=== PATIENT | female | born 2000 | race Caucasian/White ===

== ENCOUNTER 2021-04-04 00:49 | Emergency (ER) | payer BC ==
[2021-04-04 01:54] VITALS: BP 116/71
--- NOTE | 2021-04-04 08:46 | Emergency Department Report ---
- General Chief Complaint: Upper Respiratory Infection Stated Complaint: COUGHING UP BLOOD Time Seen by Provider: 04/04/21 07:01 Source: patient Mode of arrival: Ambulatory Limitations: No Limitations - History of Present Illness Initial Comments: 20-year-old female that is 27 weeks presents to the emergency room states that she started coughing up blood last night and this morning. Patient denies being on any blood thinners, no pain no fever no chills no abd ominal pain no vaginal discharge no vaginal bleeding. Patient denies any history of blood clotting disease. She is 2 para 1. Last menstrual period was 09/22/2020. There is no chest pain or shortness of breath only with cough. She states when she coughs she does sometimes wheeze but then it would return normal. MD Complaint: cough -: Last night Consistency: intermittent Improves With: nothing Associated Symptoms: denies other symptoms - Related Data Home Medications Medication Instructions Recorded Confirmed Last Taken Formula Tablet 1 tab PO DAILY 09/18/18 09/18/18 09/17/18 Previous Rx's Medication Instructions Recorded Last Taken Type HYDROcodone/APAP 5-325 [[place] 1 each PO Q6HR PRN #20 tablet 09/21/18 Unknown Rx 5/325] Ibuprofen [Motrin] 800 mg PO Q8HR PRN #60 tablet 09/21/18 Unknown Rx Ferrous Sulfate [Iron 325 MG] 325 mg PO Q12H 30 Days #60 tablet 09/23/18 Unknown Rx Nitrofurantoin [place]/M-Cryst 100 mg PO Q12HR 7 Days #14 capsule 09/23/18 Unknown Rx [Macrobid CAP] Allergies Allergy/AdvReac Type Severity Reaction Status Date / Time amoxicillin Allergy Hives Verified 09/18/18 23:13 ED Review of Systems ROS: Stated complaint: COUGHING UP BLOOD Other details as noted in HPI Comment: All other systems reviewed and negative ED Past Medical Hx - Past Medical History Previous Medical History?: No Hx Hypertension: No Hx Congestive Heart Failure: No Hx Diabetes: No Hx Deep Vein Thrombosis: No Hx Liver Disease: No Hx Renal Disease: No Hx Sickle Cell Disease: No Hx Seizures: No Hx Asthma: No Hx COPD: No - Surgical History Past Surgical History?: Yes Additional Surgical History: tonsils - Social History Smoking Status: Never Smoker Substance Use Type: None - Medications Home Medications: Home Medications Medication Instructions Recorded Confirmed Last Taken Type Formula Tablet 1 tab PO DAILY 09/18/18 09/18/18 09/17/18 History HYDROcodone/APAP 5-325 [[place] 1 each PO Q6HR PRN #20 tablet 09/21/18 Unknown Rx 5/325] Ibuprofen [Motrin] 800 mg PO Q8HR PRN #60 tablet 09/21/18 Unknown Rx Ferrous Sulfate [Iron 325 MG] 325 mg PO Q12H 30 Days #60 tablet 09/23/18 Unknown Rx Nitrofurantoin Cecil/M-Cryst 100 mg PO Q12HR 7 Days #14 capsule 09/23/18 Unknown Rx [Macrobid CAP] ED Physical Exam - General Limitations: No Limitations General appearance: alert, in no apparent distress - Head Head exam: Present: atraumatic, normocephalic - Eye Eye exam: Present: normal appearance - ENT ENT exam: Present: normal exam, mucous membranes moist - Neck Neck exam: Present: normal inspection, full ROM - Respiratory Respiratory exam: Present: normal lung sounds bilaterally. Absent: respiratory distress, chest wall tenderness - Cardiovascular Cardiovascular Exam: Present: regular rate, normal rhythm - GI/Abdominal GI/Abdominal exam: Present: soft - Extremities Exam Extremities exam: Present: normal inspection - Back Exam Back exam: Present: normal inspection - Neurological Exam Neurological exam: Present: alert, oriented X3, normal gait - Psychiatric Psychiatric exam: Present: normal affect, normal mood - Skin Skin exam: Present: warm, dry, intact, normal color. Absent: rash ED Course Vital Signs 04/04/21 01:35 Temperature 98.0 F Pulse Rate 82 Respiratory 16 Rate Blood Pressure 116/71 O2 Sat by Pulse 100 Oximetry ED Medical Decision Making - Lab Data Result diagrams: 04/04/21 08:49 04/04/21 11:03 - Radiology Data Radiology results: report reviewed [facility] [address] [place] [address] Cat Scan Report Signed Patient: YASIR DAILY MR#: [id number] : 2000 Acct:[id number] Age/Sex: 20 / F ADM Date: 04/04/21 Loc: ED Attending Dr: Ordering Physician: TEJA ADAN Date of Service: 04/04/21 Procedure(s): CT angio chest Accession Number(s): [id number] cc: TEJA ADAN CTA CHEST WITH CONTRAST INDICATION / CLINICAL INFORMATION: Haemophilus; elevated D-dimer. TECHNIQUE: Axial CT images were obtained through the chest after injection of 100 cc Omnipaque 350 IV contrast. 3 plane MIP and/or 3D reconstructions were produced. All CT scans at this location are performed using CT dose reduction for ALARA by means of automated exposure control. COMPARISON: None available. FINDINGS: PULMONARY ARTERIES: No pulmonary emboli. THORACIC AORTA: No significant abnormality. HEART: No significant abnormality. CORONARY ARTERY CALCIFICATION: None. MEDIASTINUM / BISHNU: No significant abnormality. PLEURA: No pleural effusion. No pneumothorax. LUNGS: No acute air space or interstitial disease. There is an incidental 1.1 cm thin-walled cyst in the left upper lobe. ADDITIONAL FINDINGS: None. UPPER ABDOMEN: No acute findings. SKELETAL STRUCTURES: No significant osseous abnormality. IMPRESSION: 1. No CT evidence for pulmonary embolism. 2. No acute findings. Signer Name: Enrique Richmond MD Signed: 04/04/2021 1:36 PM Workstation Name: [id number] Transcribed By: RT Dictated By: Enrique Richmond MD Electronically Authenticated By: Enrique Richmond MD Signed Date/Time: 04/04/211335 DD/ 32 TD/TT: Print Cancel - Medical Decision Making 20-year-old female that is 27 weeks presents to the emergency room states that she started coughing up blood last night and this morning. Patient denies being on any blood thinners, no pain no fever no chills no abdominal pain no vaginal discharge no vaginal bleeding. Patient denies any history of blood clotting disease. She is 2 para 1. Last menstrual period was 09/22/2020. There is no chest pain or shortness of breath only with cough. She states when she coughs she does sometimes wheeze but then it would return normal. Discussed case with Dr. [place]. We will do a CBC PT PTT D-dimer which most likely is going to be elevated will move to a CTA chest. Brittany with patient the risks and benefits of having a CTA patient agreed to having the procedure. CT angio of chest is negative for any evidence of pulmonary embolism. Patient is to increase her fluid intake and follow-up with her [facility]. Critical Care Time: Yes (35) Critical care attestation.: If time is entered above; I have spent that time in minutes in the direct care of this critically ill patient, excluding procedure time. ED Disposition Clinical Impression: Coughing up blood Disposition: DC- TO HOME OR SELFCARE Is pt being admited?: No Does the pt Need Aspirin: No Condition: Stable Instructions: Hemoptysis, Yerd-hr-Ttyc Additional Instructions: CT scan of your chest is negative for any pulmonary embolism. Your labs show that you are anemic but stable. I recommend to increase your fluid intake and follow-up with your [facility] in the next 2 to 3 days. Return back to the emergency room if your symptoms worsen. Referrals: PRIMARY CARE,MD [Primary Care Provider] - 3-5 Days Your, [facility] [Other] - 3-5 Days Forms: Work/School Release Form(ED)
[2021-04-04 09:16] LABS: Hematocrit 28.5 % (30.3-42.9); Hemoglobin 9.1 gm/dl (10.1-14.3); Mean Corpuscular HGB Conc 32 % (30-34); Mean Corpuscular Volume 81 fl (79-97); Platelet Count 240 K/mm3 (140-440); Red Blood Count 3.54 M/mm3 (3.65-5.03); Red Cell Distribution Width 15.3 % (13.2-15.2)
[2021-04-04 10:01] LABS: INR 0.94 (0.87-1.13)
[2021-04-04 10:02] LABS: Partial Thromboplastin Time 25.8 Sec. (24.2-36.6)
[2021-04-04 11:50] LABS: Blood Urea Nitrogen 9 mg/dL (7-17); Calcium 8.7 mg/dL (8.4-10.2); Hemolysis Index 0
[2021-04-04 11:52] LABS: BUN/Creatinine Ratio 23
--- NOTE | 2021-04-04 13:41 | Cat Scan Report ---
CTA CHEST WITH CONTRAST INDICATION / CLINICAL INFORMATION: Haemophilus; elevated D-dimer. TECHNIQUE: Axial CT images were obtained through the chest after injection of 100 cc Omnipaque 350 IV contrast. 3 plane MIP and/or 3D reconstructions were produced. All CT scans at this location are per formed using CT dose reduction for ALARA by means of automated exposure control. COMPARISON: None available. FINDINGS: PULMONARY ARTERIES: No pulmonary emboli. THORACIC AORTA: No significant abnormality. HEART: No significant abnormality. CORONARY ARTERY CALCIFICATION: None. MEDIASTINUM / BISHNU: No significant abnormality. PLEURA: No pleural effusion. No pneumothorax. LUNGS: No acute air space or interstitial disease. There is an incidental 1.1 cm thin-walled cyst in the left upper lobe. ADDITIONAL FINDINGS: None. UPPER ABDOMEN: No acute findings. SKELETAL STRUCTURES: No significant osseous abnormality. IMPRESSION: 1. No CT evidence for pulmonary embolism. 2. No acute findings. Signer Name: Enrique Richmond MD Signed: 04/04/2021 1:36 PM Workstation Name: [id number]
[2021-04-04 15:05] LABS: Band Neutrophils # (Manual) 0.2 K/mm3; Hypochromasia 1+; Large Platelets Few; Myelocytes # (Manual) 0.1 K/mm3; Platelet Estimate Consistent w Auto; Total Cells Counted 100
== END 2021-04-04 14:11 | disposition home or self-care (01) ==
LOC: ED 00:49
DX: O26.892 Other specified pregnancy related conditions, second trimester (principal); R04.2 Hemoptysis; Z3A.27 27 weeks gestation of pregnancy; Z98.890 Other specified postprocedural states; Z79.1 Long term (current) use of non-steroidal anti-inflammatories (NSAID); Z79.899 Other long term (current) drug therapy; Z88.1 Allergy status to other antibiotic agents
CPT/HCPCS: 36415; 71275; 80048; 85007; 85025; 85379; 85610; 85730; 99284; Q9967

== ENCOUNTER 2021-06-29 20:51 | Inpatient (IN) | payer BC, MEDICAID ==
[2021-06-29] MEDS ORDERED: miSOPROStol 200 MCG TAB PR PRN (21:40)
[2021-06-29] MEDS ORDERED: LIDOCAINE (2%) 20 MG/1 ML VIAL 20 ML MDV INFILTRATI ONE (21:40)
[2021-06-29] MEDS ORDERED: LOPERAMIDE 2 MG CAP PO PRN (21:40)
[2021-06-29] MEDS ORDERED: MINERAL OIL 30 ML ORAL LIQD PO PRN (21:40)
[2021-06-29] MEDS ORDERED: OXYTOCIN 10 UNIT/1 ML INJ IM PRN (21:40)
[2021-06-29] MEDS ORDERED: ACETAMINOPHEN 325 MG TAB PO PRN (21:40)
[2021-06-29] MEDS ORDERED: CARBOPROST TROMETHAMINE 250 MCG/1 ML INJ IM PRN (21:40)
[2021-06-29] MEDS ORDERED: fentaNYL 100 MCG/2 ML INJ IV PRN (21:40)
[2021-06-29] MEDS ORDERED: METHYLERGONOVINE MALEATE 0.2 MG/ML VIAL IM PRN (21:40)
[2021-06-29] MEDS ORDERED: BUTORPHANOL 2 MG/1 ML INJ IV PRN (21:40)
[2021-06-29] MEDS ORDERED: TERBUTALINE 1 MG/1 ML INJ SUB-Q PRN (21:40)
[2021-06-29] MEDS ORDERED: ePHEDrine SULFATE 50 MG/1 ML INJ IV PRN (21:40)
[2021-06-29] MEDS ORDERED: LACTATED RINGERS 1,000 ML IV SCH (21:45)
[2021-06-29] MEDS ORDERED: OXYTOCIN DRIP 30 UNITS/500 ML BAG IV SCH ×2 (22:00)
[2021-06-29 22:24] LABS: Hematocrit 38.2 % (30.3-42.9); Hemoglobin 12.8 gm/dl (10.1-14.3); Mean Corpuscular HGB Conc 33 % (30-34); Mean Corpuscular Volume 85 fl (79-97); Platelet Count 218 K/mm3 (140-440)
[2021-06-29 22:40] LABS: Red Cell Distribution Width 22.6 % (13.2-15.2)
--- NOTE | 2021-06-29 23:30 | History and Physical Report ---
History of Present Illness Date of examination: 06/29/21 Date of admission: 06/29/21 21:40 Chief complaint: painful ctxs History of present illness: 20yo, @ 40 wks, transferred care to [place] [facility] at 26 wks gestation. Her has been complicated by anemia. Reports to [facility] with reports of ctxs q 5 mins and found to have cervical dilation of 5.5 cms. Reports positive FM. Denies any VB or LOF. Labs: O+, antibody negative; PAP smear normal; rubella immune; VDRL negative; HBsAg negative; HIV negative; HSV2 negative; GC/Chlamydia negative; MSAFP/Multiple markers declined; 1hr gtt 84; GBS negative. Past History Past Medical History: no pertinent history Past Surgical History: tonsillectomy Family/Genetic History: other (hypercholesteremia) - Obstetrical History Expected Date of Delivery: 06/29/21 Actual Gestation: 40 Week(s) 0 Day(s) : 2 Para: 1 Hx # Term Pregnancies: 1 Number of Pregnancies: 0 Spontaneous Abortions: 0 Induced : 0 Number of Living Children: 1 #1 Gender: Male year: 2[birth year] Birthweight: 3.062 kg Method of Delivery: Vaginal Gestational age at delivery: 37 Complications: none Medications and Allergies Allergies Allergy/AdvReac Type Severity Reaction Status Date / Time amoxicillin Allergy Hives Verified 09/18/18 23:13 Home Medications Medication Instructions Recorded Confirmed Last Taken Type Formula Tablet 1 tab PO DAILY 09/18/18 09/18/18 09/17/18 History HYDROcodone/APAP 5-325 [[place] 1 each PO Q6HR PRN #20 tablet 09/21/18 Unknown Rx 5/325] Ibuprofen [Motrin] 800 mg PO Q8HR PRN #60 tablet 09/21/18 Unknown Rx Nitrofurantoin [place]/M-Cryst 100 mg PO Q12HR 7 Days #14 capsule 09/23/18 Unknown Rx [Macrobid CAP] RX: Ferrous Sulfate [Iron 325 MG] 325 mg PO Q12H 30 Days #60 tablet 09/23/18 Unknown Rx Active Meds: Active Medications Acetaminophen (Acetaminophen 325 Mg Tab) 650 mg PO Q4H PRN PRN Reason: Pain, Mild (1-3) Butorphanol Tartrate (Butorphanol 2 Mg/1 Ml Inj) 1 mg IV Q2H PRN PRN Reason: Pain, Moderate(4-6) LABOR PAIN Carboprost Tromethamine (Carboprost Tromethamine 250 Mcg/1 Ml Inj) 250 mcg IM ONCE PRN PRN Reason: Uterine Bleeding Ephedrine Sulfate (Ephedrine Sulfate 50 Mg/1 Ml Inj) 10 mg IV Q2M PRN PRN Reason: Hypotension Fentanyl (Fentanyl 100 Mcg/2 Ml Inj) 100 mcg IV Q2H PRN PRN Reason: Pain,Severe (7-10) LABOR PAIN Last Admin: 06/29/21 22:41 Dose: 100 mcg Documented by: Oxytocin/Sodium Chloride (Pitocin/Ns 30 Unit/500ml) 30 units in 500 mls @ 2 mls/hr IV TITR FRANK; Protocol Lactated Ringer's (Lactated Ringers) 1,000 mls @ 125 mls/hr IV DIRECT FRANK Oxytocin/Sodium Chloride (Pitocin/Ns 30 Unit/500ml) 30 units in 500 mls @ 40 mls/hr IV TITR FRANK; Protocol Loperamide HCl (Loperamide 2 Mg Cap) 2 mg PO ONCE PRN PRN Reason: give with Hemabate Methylergonovine Maleate (Methylergonovine Maleate 0.2 Mg/Ml Vial) 0.2 mg IM ONCE PRN PRN Reason: Uterine Bleeding Mineral Oil (Mineral Oil 30 Ml Oral Liqd) 30 ml PO QHS PRN PRN Reason: Constipation Misoprostol (Misoprostol 200 Mcg Tab) 800 mcg OR ONCE PRN PRN Reason: Uterine Bleeding Oxytocin (Oxytocin 10 Unit/1 Ml Inj) 10 unit IM ONCE PRN PRN Reason: Uterine Bleeding Terbutaline Sulfate (Terbutaline 1 Mg/1 Ml Inj) 0.25 mg SUB-Q ONCE PRN PRN Reason: Hyperstimulation/Hypertonicity Review of Systems All systems: negative Genitourinary: contractions - Vital Signs Vital signs: Vital Signs Pulse Pulse Ox 92 H 93 06/29/21 21:11 06/29/21 21:11 Temp Pulse Resp BP Pulse Ox 99.0 F 83 20 111/59 98 06/29/21 22:52 06/29/21 23:19 06/29/21 22:52 06/29/21 22:41 06/29/21 23:19 - Physical Exam Breasts: Positive: normal Cardiovascular: Regular rate Lungs: Positive: Normal air movement Abdomen: Positive: other (gravid) Genitourinary (Female): Positive: normal external genitalia, normal perenium Uterus: Positive: enlarged (S=D) Extremities: Positive: normal Deep Tendon Reflex Grade: Normal +2 - Obstetrical FHR: category 1 Cervical Dilatation: 9 (vertex) Cervical Effacement Percentage: 80 station: -1 Uterine Contraction Frequency (min): 2-3 Uterine Contraction Pattern: Irregular Uterine Tone Measurement Phase: Resting Uterine Contraction Intensity: Strong/Firm Results Result Diagrams: 06/29/21 21:55 Abnormal lab results 06/29/21 Range/Units 21:55 RDW 22.6 H (13.2-15.2) % All other labs normal. Assessment and Plan - Patient Problems (1) Active labor at term Current Visit: Yes Status: Acute Plan to address problem: Admit to L&D Pain meds as desired per orders Anticipate
[2021-06-30] MEDS ORDERED: ePHEDrine SULFATE 50 MG/1 ML INJ IV PRN (00:59)
[2021-06-30] MEDS ORDERED: LACTATED RINGERS 250 ML IV SOLN IV ONE (00:59)
[2021-06-30] MEDS ORDERED: NalbUPHINE 10 MG/1 ML INJ IV PRN (00:59)
[2021-06-30] MEDS ORDERED: ONDANSETRON 4 MG/2 ML INJ IV PRN (00:59)
[2021-06-30] MEDS ORDERED: NALOXONE 2 MG/2 ML INJ IV PRN (00:59)
[2021-06-30] MEDS ORDERED: diphenhydrAMINE 50 MG/ML VIAL IV PRN (00:59)
[2021-06-30] MEDS ORDERED: fentaNYL-BUPIV 2 MCG/ML-0.125% 200 MCG/100 ML BAG EPIDURAL SCH (01:00)
--- NOTE | 2021-06-30 01:26 | Anesthesia Consultation ---
Anesthesia Consult and Med Hx Date of service: 06/30/21 - Airway Anesthetic Teeth Evaluation: Good ROM Head & Neck: Adequate Mental/Hyoid Distance: Adequate Mallampati Class: Class I Intubation Access Assessment: Good - Pulmonary Exam CTA: Yes - Cardiac Exam Cardiac Exam: RRR - Pre-Operative Health Status ASA Pre-Surgery Classification: ASA2 Proposed Anesthetic Plan: Epidural - Pulmonary Hx Smoking: No Hx Asthma: No Hx Respiratory Symptoms: No COPD: No Hx Pneumonia: No Hx Sleep Apnea: No - Cardiovascular System Hx Hypertension: No Hx Heart Attack/AMI: No Hx Angina: No - Central Nervous System Hx Neuromuscular Disorder: No Hx Seizures: No CVA: No Hx Psychiatric Problems: No - Gastrointestinal Hx Gastroesophageal Reflux Disease: No - Endocrine Hx Renal Disease: No Hx End Stage Renal Disease: No Hx Liver Disease: No Hx Insulin Dependent Diabetes: No Hx Non-Insulin Dependent Diabetes: No Hx Thyroid Disease: No Hx Hypothyroidism: No Hx Hyperthyroidism: No - Hematic Hx Anemia: No Hx Sickle Cell Disease: No - Other Systems Hx Alcohol Use: No - Additional Comments Anesthesia Medical History Comments: PDPH with last epidural
--- NOTE | 2021-06-30 01:27 | Progress Note ---
Labor Epidural - Labor Epidural Start Time: 01:10 Stop Time: :22 Performed by:: IVET HAMMOND Procedure: Patient is requesting epidural for labor and pain. H&P, labs were reviewed. Patient IDed, H&P reviewed, all questions and concerns were answered, and consent was signed. Timeout was performed at bedside. Patient in sitting position. Sterile prep and drape was performed. 3ml of 1% lidocaine skin wheal at L[3]- L [4]. 18-gauge Tuohy epidural needle was advanced to loss of resistance with air technique 6cm. Negative CSF negative blood. Epidural catheter advanced to [11] centimeters. [negative] Aspiration [negative] test dose. Sterile dressing applied. Patient tolerated procedure.
[2021-06-30] MEDS ORDERED: oxyCODONE /ACETAMINOPHEN 5-325MG TAB PO PRN (03:11)
[2021-06-30] MEDS ORDERED: diphenhydrAMINE 25 MG CAP PO PRN (03:11)
[2021-06-30] MEDS ORDERED: PROMETHAZINE 25 MG TAB PO PRN (03:11)
[2021-06-30] MEDS ORDERED: WITCH HAZEL/ GLYCERIN PAD TP PRN (03:11)
[2021-06-30] MEDS ORDERED: MAGNESIUM HYDROXIDE (MOM) ORAL LIQD UDC PO PRN (03:11)
[2021-06-30] MEDS ORDERED: LANOLIN/ZINC/DIMETHICONE (LANSINOH) 7 GM TP PRN (03:11)
--- NOTE | 2021-06-30 03:21 | Procedure Note ---
OB Delivery Note - Delivery Date of Delivery: 06/30/21 (0253) Surgeon: NU JUNIOR (TUYET) Estimated blood loss: <100cc - Vaginal Delivery presentation: vertex Delivery position: OA Intrapartum events: meconium Delivery induction: none Delivery augmentation: rupture of membranes (AROM @ 2355 on 06/29/21) Delivery monitor: external FHT, external uterine Route of delivery: Delivery placenta: spontaneous (025) Delivery cord: nuchal cord (x1, reduced at perineum), 3 umbilical vessels Episiotomy: none Delivery laceration: none Anesthesia: epidural Delivery comments: of viable, male infant delivered by Grey Bob CNM, placed directly to maternal abdomen. Spontaneous cry produced by manual drying and stimulation. Cord double clamped and cut, handed over to awaiting HAN team nurse for evaluation. Cord blood collected, sent to lab. Placenta spontaneously delivered, lux, disposed. Uterus firm @ U-2, hemostasis maintained. Perineum intact. Mother and baby safe, stable and left in care of RN. - Infant A at 1 minute: 8 at 5 minutes: 9 Infant Gender: Male (Weight: 3900 gms (8lbs 10ozs) 22 inches)
[2021-06-30] MEDS ORDERED: miSOPROStol 200 MCG TAB PR PRN (04:14)
[2021-06-30] MEDS ORDERED: miSOPROStol 200 MCG TAB ONE (04:16)
[2021-06-30] MEDS: IBUPROFEN 600 MG TAB PO SCH ×3 (04:31→18:16)
[2021-06-30] MEDS ORDERED: ACETAMINOPHEN 325 MG TAB PO PRN (08:00)
--- NOTE | 2021-06-30 09:53 | Post Anesthesia Evaluation ---
- Post Anesthesia Evaluation Patient Participated: Yes Airway Patent: Yes Stable Respiratory Function: Yes Nausea/Vomiting: No Temp > 96.8F: Yes Pain Manageable: Yes Adequeate Hydration: Yes Anesthesia Complications: No Block Receding Appropriately: Yes Patient on Ventilator: No
[2021-06-30] MEDS: PRENATAL VIT27-FE FUMARATE-FOLIC ACID VIT TAB PO SCH (10:44)
[2021-06-30 15:28] LABS: Hematocrit 32.7 % (30.3-42.9); Hemoglobin 10.8 gm/dl (10.1-14.3)
[2021-07-01] MEDS: IBUPROFEN 600 MG TAB PO SCH ×3 (00:16→13:21)
--- NOTE | 2021-07-01 07:28 | Progress Note ---
Assessment and Plan A: PPD#1 s/p at term P: Anticipate discharge this morning. Subjective - Subjective Date of service: 07/01/21 Principal diagnosis: PPD#1 s/p at term Interval history: Patient is feeling well with no complaints. Reports pain well controlled, decreasing lochia and no problems with ambulation. Patient reports: appetite normal, voiding normally, pain well controlled, ambulating normally [place]: doing well Objective - Vital Signs Latest vital signs: Vital Signs Temp Pulse Resp BP BP Pulse Ox Pulse Ox 07/01/21 00:00 98.8 F 79 16 101/66 06/30/21 20:46 97 06/30/21 20:30 97 06/30/21 20:16 98.0 F 78 18 92/50 97 06/30/21 17:15 98.2 F 89 20 106/63 06/30/21 14:56 100 06/30/21 13:09 98.8 F 99 H 20 103/51 06/30/21 12:56 100 06/30/21 10:55 100 06/30/21 08:43 100 06/30/21 08:35 98.8 F 91 H 20 112/63 Intake and Output 06/30/21 06/30/21 07/01/21 15:59 23:59 07:59 Intake Total 480 570 Output Total 1050 300 Balance -570 270 Intake: Oral 480 570 Output: Urine 1050 300 Void 1050 300 Other: Total, Intake Amount 360 200 Total, Output Amount 400 300 # Voids Void 3 1 - Exam Uterus: Present: firm, fundal height below umbilicus
--- NOTE | 2021-07-01 07:29 | Discharge Summary ---
Providers - Providers Date of Admission: 06/29/21 21:40 Date of discharge: 07/01/21 Attending physician: DESMOND CHANEL 06/30/21 03:13 Consult to Office Assistance [CONS] Routine Reason For Exam: assistance with , SNS Primary care physician: DESMOND CHANEL Hospitalization Reason for admission: IUP at term Delivery: Episiotomy: none complications: none baby: male Hospital course: Unremarkable Condition at discharge: Good Disposition: 01 HOME / SELF CARE / HOMELESS Plan - Discharge Medications Prescriptions: Ibuprofen [Motrin 600 MG tab] 600 mg PO Q8H PRN #30 tablet PRN Reason: Pain - Provider Discharge Summary Activity: routine, no sex for 6 weeks, no heavy lifting 4 weeks, no strenuous exercise Diet: routine Instructions: routine Additional instructions: [] Smoking cessation referral if applicable(refer to patient education folder for contact #) [] Refer to [facility] Booklet Call your doctor immediately for: * Fever > 100.5 * Heavy vaginal bleeding ( >1 pad per hour) * Severe persistent headache * Shortness of breath * Reddened, hot, painful area to leg or breast * Drainage or odor from incision. * Keep incision clean and dry at all times and follow doctor's instructions regarding bathing/showering Call [facility] to schedule newborns circumcision. - Follow up plan Follow up: MIROSALVA SERRATO [employer]ILRO[employer] OPERATOR [Advanced Practice Nurse] - 07/28/21
[2021-07-01] MEDS: PRENATAL VIT27-FE FUMARATE-FOLIC ACID VIT TAB PO SCH (13:06)
[2021-07-01 16:40] VITALS: BP 113/77
== END 2021-07-01 17:25 | disposition home or self-care (01) | DRG 807 ==
LOC: TRG 20:51 → APU 20:53 → LD 21:40 → TRG 21:40 → OB 06-30 05:08
PROVIDERS: ADMIT Obstetrics & Gynecology; ATTEND Obstetrics & Gynecology
PROC: 10E0XZZ Delivery of Products of Conception, External Approach (ICD-10-PCS; principal; 2021-06-30)
PROC: 3E0R3BZ Introduction of Anesthetic Agent into Spinal Canal, Percutaneous Approach (ICD-10-PCS; 2021-06-30)
PROC: 00HU33Z Insertion of Infusion Device into Spinal Canal, Percutaneous Approach (ICD-10-PCS; 2021-06-30)
PROC: 10907ZC Drainage of Amniotic Fluid, Therapeutic from Products of Conception, Via Natural or Artificial Opening (ICD-10-PCS; 2021-06-30)
DX: O77.0 Labor and delivery complicated by meconium in amniotic fluid (principal); Z37.0 Single live birth; Z3A.40 40 weeks gestation of pregnancy; O69.81X0 Labor and delivery complicated by cord around neck, without compression, not applicable or unspecified; Z20.822 Contact with and (suspected) exposure to COVID-19
CPT/HCPCS: 36415; 59025; 85014; 85018; 85027; 86592; 86850; 86900; 86901; 99211; G0378; G0463; J2590; J3010; J7120; U0003